=== PATIENT | female | born 1955 | race African-American/Black ===

== ENCOUNTER 2020-03-11 15:32 | Emergency (ER) | payer OTHER ==
[~2020-03-11] VITALS: Ht 160 cm; Wt 86.0 kg
[2020-03-11] MEDS ORDERED: CLONIDINE 0.2MG TABLET PO ONE (16:15)
[2020-03-11] MEDS ORDERED: ASPIRIN 81MG TABLET PO ONE (16:15)
[2020-03-11] MEDS: NITROGLYCERIN 0.4MG TABLET SL SL PRN ×3 (16:28→16:34)
[2020-03-11 16:43] LABS: BASOPHILS % 0.7 % (0.0-2.0); EOSINOPHILS % 3.1 % (0.0-5.0); HEMATOCRIT. 39.1 % (36.0-48.0); LYMPHOCYTES % 29.2 % (20.0-50.0); MEAN CORPUSCULAR HEMOGLOBIN 29.7 pg (28.0-32.0); MEAN CORPUSCULAR VOLUME 89.1 fL (81.0-99.0); MONOCYTES % 8.2 % (2.0-8.0); NEUTROPHILS % 58.8 % (40.0-76.0); PLATELET 269 x1000/uL (130-400); RED BLOOD CELL COUNT 4.39 mill/uL (4.2-5.4); RED CELL DISTRIBUTION WIDTH 13.1 % (11.6-14.6)
[2020-03-11 16:47] LABS: CHLORIDE 107 mEq/L (98-107)
[2020-03-11 16:53] LABS: D-DIMER 0.55 mg/L FEU (<0.50); PARTIAL THROMBOPLASTIN TIME 27.3 sec (23.4-31.0); PROTHROMBIN TIME 10.3 sec (9.6-11.0)
[2020-03-11] MEDS ORDERED: IOHEXOL-350 100 ML BOTTLE ONE (19:13)
[2020-03-11] MEDS ORDERED: ONDANSETRON HCL 4MG/2ML INJ IV STA (20:08)
[2020-03-11] MEDS ORDERED: MORPHINE SULFATE 4 MG/ML CPJ (NOT FOR IM USE) IV STA (20:08)
[2020-03-11 21:08] VITALS: BP 161/90
== END 2020-03-11 20:20 | disposition short-term general hospital (02) ==
LOC: ER 15:32
DX: R07.89 Other chest pain (principal); I10 Essential (primary) hypertension; E78.00 Pure hypercholesterolemia, unspecified; I25.2 Old myocardial infarction; Z90.710 Acquired absence of both cervix and uterus; Z87.891 Personal history of nicotine dependence
CPT/HCPCS: 36415; 71045; 71275; 80053; 83880; 84484; 85025; 85379; 85610; 85730; 93005; 96374; 96375; 99285; J2270; J2405; Q9967; Z7610